=== PATIENT | male | born 1995 | race Caucasian/White ===

== ENCOUNTER 2016-11-07 14:56 | Emergency (ER) | payer OTHER ==
--- NOTE | ~2016-11-07 | EKG ---
PATIENT: LILI ZELAYA UNIT #: [id number] Ventricular Rate: 62 BPM Atrial Rate: 62 BPM P-R Interval: 168 ms QRS Duration: 98 ms Q-T Interval: 408 ms QTC Calculation(Bezet): 414 ms P [place]: 67 degrees Calculated R [place]: 62 degrees Calculated T [place]: 52 degrees Diagnosis Line: Sinus rhythm with marked sinus arrhythmia Diagnosis Line: Otherwise normal ECG Diagnosis Line: No previous ECGs available Diagnosis Line: Confirmed by PRANAY ANSARI MD ([id number]) on Diagnosis Line: 11/10/2016 11:03:12 AM INTERPRETING MD: ELAN RAMIREZ
[2016-11-07] MEDS ORDERED: DEPAKOTE PO (15:03)
[2016-11-07] MEDS ORDERED: BIPOLAR MEDICATION (15:03)
[2016-11-07] MEDS ORDERED: [UNRECOGNIZED DRUG - REMARK] (15:03)
[2016-11-07 15:59] LABS: BASOPHIL% 0.3 % (0-2.5); EOSINOPHIL# 0.1 X10e3 (0-0.7); EOSINOPHIL% 2.7 % (0.0-7.0); HEMATOCRIT 42.1 % (38.0-50.0); HEMOGLOBIN 14.5 gm/dL (13.0-16.0); LYMPHOCYTE# 2.1 X10e3 (1.0-3.5); LYMPHOCYTE% 38.3 % (17.0-45.0); MEAN CELL VOLUME 88.1 FL (83-96); MEAN CORPUSCULAR HEMOGLOBIN 30.4 PG (28-34); MEAN CORPUSCULAR HGB CONC 34.5 g/dL (30-36); MEAN PLATELET VOLUME 7.2 FL (6.5-11.5); MONOCYTE# 0.4 X10e3 (0-1.0); MONOCYTE% 7.5 % (3.0-12.0); NEUTROPHIL# 2.9 X10e3 (1.5-7.1); NEUTROPHIL% 51.2 % (40-75); PLATELET COUNT 176 X10e3 (140-420); RED BLOOD COUNT 4.78 X10e (3.90-5.60); RED CELL DISTRIBUTION WIDTH 13.5 % (11.0-15.5); WHITE BLOOD COUNT 5.6 X10e3 (4.0-10.5)
[2016-11-07 16:07] LABS: DIFF IND NO
[2016-11-07 16:18] LABS: ALBUMIN SERUM 4.7 g/dL (3.5-5.0); BILIRUBIN, DIRECT 0.1 mg/dL (0.0-0.2); BILIRUBIN,INDIRECT 0.6 mg/dL (0.0-0.9); BILIRUBIN,TOTAL 0.7 mg/dL (0.2-2.0); CALCIUM SERUM 9.5 mg/dL (8.4-10.2); GLOM FILT RATE Estimated 107.1 mL/min (>60); POTASSIUM 4.2 mmol/L (3.5-5.1); PROTEIN TOTAL SERUM 7.3 g/dL (6.0-8.3)
[2016-11-07 16:31] LABS: URINE SOURCE CLEAN CATCH
[2016-11-07 16:35] LABS: URINE APPEARANCE SL CLOUDY; URINE BILIRUBIN NEG (NEG); URINE BLOOD NEG (NEG); URINE COLOR YELLOW; URINE GLUCOSE NEG (NORM); URINE KETONE NEG (NEG); URINE LEUKOCYTE ESTERASE NEG (NEG); URINE NITRATE NEG (NEG); URINE PROTEIN NEG (NEG)
[2016-11-07 16:40] LABS: MICRO INDICATED? YES; URINE RBC 0-2 /[HPF] (0-2)
[2016-11-07 16:41] LABS: CULTURE INDICATED? YES; URINE BACTERIA NEG (NEG)
[2016-11-07 16:42] LABS: URINE AMORPHOUS SEDIMENT AMORP PHOSPHATES; URINE SQUAMOUS EPITHELIAL CELL OCCAS /[HPF]
== END 2016-11-07 16:37 | disposition home or self-care (01) ==
LOC: SED 14:56
PROVIDERS: Emergency Medicine
DX: R55 Syncope and collapse (principal); E86.0 Dehydration; F31.9 Bipolar disorder, unspecified; F17.200 Nicotine dependence, unspecified, uncomplicated; Z79.899 Other long term (current) drug therapy
CPT/HCPCS: 36415; 80048; 80076; 81003; 82150; 83690; 85025; 86308; 87086; 93005; 96361; 96374; 99284; J1885

== ENCOUNTER 2016-12-09 18:16 | Emergency (ER) | payer OTHER ==
[~2016-12-09] VITALS: Ht 185.4 cm; Wt 74.8 kg
[~2016-12-09 18:16] MED LIST: BIPOLAR MEDICATION; DEPAKOTE PO; [UNRECOGNIZED DRUG - REMARK]
== END 2016-12-09 19:30 | disposition home or self-care (01) ==
LOC: CFTX 18:16 → CED 18:16 → CFTX 19:15
DX: S68.022A Partial traumatic metacarpophalangeal amputation of left thumb, initial encounter (principal); F17.210 Nicotine dependence, cigarettes, uncomplicated; W26.0XXA Contact with knife, initial encounter; Y92.69 Other specified industrial and construction area as the place of occurrence of the external cause; Y99.0 Civilian activity done for income or pay
CPT/HCPCS: 99283